=== PATIENT | female | born 1945 | race Caucasian/White ===

== ENCOUNTER 2023-11-27 19:06 | Emergency (ER) | payer MEDICARE, OTHER, SELFPAY ==
[2023-11-27 19:08] VITALS: BP 190/89
--- NOTE | 2023-11-27 19:56 | ED.MUSCINJ ---
HPI-Injury
General
Chief Complaint: Musculo-Skeletal Complaint
Source: patient
Exam Limitations: none
Time Seen by Provider: 11/27/23 19:41
History of Present Illness-Injury
Is this injury a work related problem?: No
Is pt an associate of [facility]?: No
Initial Injury comments:
This is a 78 year old female that comes in with c/o fall. States that she was going from her kitchen into her dinning room and she tripped on the rug. States that she fell down on her right shoulder. Denies hitting her head or any LOC. Denies any
fever, chills, chest pain, SOB, abd pain, nausea, vomiting, diarrhea, headache, dizziness.
Past History
Past History
ED Past Medical History: Other (Diverticulosis and diverticulitis in the past, Colitis, ); Negative CAD, Cancer or CHF
ED Past Surgical History: Gynecological (Ovarian cyst surgery), Tonsilectomy and Other (Thyroid cyst removal, hernia, facelift); Negative Cardiac
Social History
Tobacco: Former smoker
Alcohol: Occasional
Drug: None
Personal:
Living: alone
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
Family History
Family History: Other
Review of Systems
Review of Systems
All Other Systems: ROS reviewed and negative except as documented in HPI and ROS
Constitutional: Reports no symptoms; Denies fever or chills
EENT: Reports no symptoms
Respiratory: Reports no symptoms; Denies cough or trouble breathing
Cardiac: Reports no symptoms; Denies chest pain
ABD/GI: Reports no symptoms; Denies abdominal pain, nausea, vomiting or diarrhea
: Reports no symptoms; Denies dysuria or urgency
Musculoskeletal: Reports joint pain (Right shoulder pain)
Skin: Reports no symptoms
Neurological: Reports no symptoms; Denies dizzy or headache
Psychiatric: Reports no symptoms
Musculoskeletal Injury Exam
Musculoskeletal Injury Exam
Right Shoulder:
Pain with Movement?: Mild
Tender to palpation?: Mild
Soft tissue swelling?: None
External deformity and angulation?: None
Joint effusion?: None
Contusion?: None
Hematoma-local bleeding into tissue?: None
Strain- Sprain- Tear (Connective tissue injury)?: None
Crepitus with movement?: No
Joint instability?: No
Malalignment/deformity?: No
Range of motion: Limited (Due to pain)
Distal skin color and temperature: normal-warm & good color
Capillary Refill: normal
Normal distal neurovascular exam?: Yes
Phy Exam
General Physical Exam
General Presentation: well appearing and no apparent distress
General age: appears stated age
General Skin: warm and dry
General Habitus: elderly
General Mental: alert
General Hydration: appears well hydrated
ENT Exam
ENT Exam: TM's normal, pharynx normal and neck supple
Eye Exam
Eye Exam: EOMI
Cardiovascular Exam
Cardiovascular Exam: regular rate/rhythm and normal peripheral pulses
Musculoskeletal Exam
Musculoskeletal Exam: other (Right shoulder tenderness over the humeral head with palpation. Discomfort with slight abduction. No posterior tenderness or anterior tenderness with palpation. )
Skin Exam
Skin Exam: normal color, warm/dry, no rash and no petechia
Psychiatric Exam
Psychiatric Exam: normal mood/affect
Injury Course
Orders/Labs/Results
Orders:
Orders
11/27/23 19:15
Humerus, Right 2 Views [CR Humerus - Right Min 2 View*] Urgent
Comment:
Reason For Exam: FALL
MDM/Problems Addressed
Differential Diagnosis Includes:
humeral fracture. shoulder contusion
MDM/Problems Addressed:
This is a 78 year old female that comes in with c/o fall onto the right shoulder.
Will get X-ray
expalined to patient that there is a fracture of the humeral head. Will place patient in a sling and have her use Tylenol 1000mg every 6 hours and Ibuprofen 600mg every 6 hours with food for pain. Patient to follow up with the Orhtopedic specialist.
Remove the sling to sleep and elevate on a pillow. Patient to return with any concerns.
Chronic conditions affecting care:
NA
Acute Exacerbation and/or Progression of Chronic Illness:
NA
*Radiology
Radiology exam reviewed: radiology read reviewed (Comminuted likely minimally displaced fracture of the greater tuberosity of the right Humerus. NO overt dislocation. Soft tissues are grossly unremarkable. )
*Pulse Oximetry
Patient hypoxic: no
*EKG
Interpreted by ED Provider?: NA
Rate: EKG- N/A
*Telegraphic Service Dispatcher Interpretation
Rate: Telegraphic Service Dispatcher- N/A
*Critical Care Note
Total Time (30-74mins, 75-104mins- exclusive of procedures): Not Applicable
ED Attending Note
-
Portions of this chart may have been created with voice recognition software.� Occasional wrong word or��sound alike� substitutions may have occurred due to the inherent limitations of voice recognition software.
Discharge Plan
Departure
Patient Disposition: Home (Routine Discharge)
Date of Disposition: 11/27/23
Time of Disposition: 20:05
Patient with high blood pressure during this ER visit?: Yes
Condition: Good
Covid-19: Not Applicable
Discharge Problem:
Fracture of right shoulder
Instructions: Upper Arm Fracture, How to Use a Shoulder Sling, BLOOD PRESSURE, RICE Therapy
Prescriptions:
No Action
ibuprofen 200 MG tablet
200 mg PO DAILY
L.acidoph, paracasei,B. lactis 1 EACH capsule
1 ea PO HS
amoxicillin-pot clavulanate 1 TABLET tablet
1 tab PO Q12
ondansetron 4 MG tablet,disintegrating
4 mg PO TIDPRN PRN (Reason: nausea/vomiting) Qty: 14 0RF
Referrals:
Daren Villagran MD [Active] - Follow up in 2-3 days
Activity Restrictions/Additional Instructions:
As discussed, you have a humeral head fracture. Please use the sling when you are up moving around. Please remove the sling when you are going to bed and rest your arm on a pillow. You may use Tylenol 1000mg every 6 hours for pain and alternate with
Ibuprofen 600mg every 6 hours with food. Ice to the shoulder at least 20 min on out of every hour. Follow up with the business taxes specialist for further evaluation. IF YOU HAVE INCREASED OR CHANGING PAIN, OR YOU HAVE ANY OTHER CONCERNS PLEASE RETURN
TO THE EMERGENCY ROOM.
Interventions
Interventions:
*Risk Screen - Suicide Last Done: 11/27/23 19:08
*Neglect/Abuse Screening Last Done: 11/27/23 19:08
Discharge Date and Time
Print Language: URUGUAYAN
[2023-11-27] MEDS: MOTRIN 600 MG PO (20:16)
== END 2023-11-27 20:48 | disposition home or self-care (01) ==
LOC: EMR 19:06
PROVIDERS: EMERGENCY PHYSICIAN Emergency Medicine; FAMILY PHYSICIAN Internal Medicine
DX: S42.251A Displaced fracture of greater tuberosity of right humerus, initial encounter for closed fracture (principal); W01.0XXA Fall on same level from slipping, tripping and stumbling without subsequent striking against object, initial encounter; Y93.01 Activity, walking, marching and hiking; Y92.008 Other place in unspecified non-institutional (private) residence as the place of occurrence of the external cause; R03.0 Elevated blood-pressure reading, without diagnosis of hypertension; K57.90 Diverticulosis of intestine, part unspecified, without perforation or abscess without bleeding; K52.9 Noninfective gastroenteritis and colitis, unspecified; Z87.891 Personal history of nicotine dependence; Z88.1 Allergy status to other antibiotic agents
CPT/HCPCS: 99283; 73060

== ENCOUNTER → 2024-12-24 13:44 | Outpatient (REF) | payer MEDICARE, OTHER, SELFPAY | LOC: HWRAD 13:44 | PROVIDERS: ATTENDING PHYSICIAN Orthopaedic Surgery Hand Surgery; FAMILY PHYSICIAN Internal Medicine | DX: S42.202A Unspecified fracture of upper end of left humerus, initial encounter for closed fracture (principal) | CPT/HCPCS: 73200 ==

== ENCOUNTER 2024-12-31 06:07 | Day surgery (SDC) | payer MEDICARE, OTHER, SELFPAY ==
--- NOTE | 2024-12-24 15:09 | CM ---
CM reviewed medical records. Patient stated that she fell recently and that led to her injury. She stated it was a mechanical fall. Patient's friend David will be available to drive patient to and from surgery. Patient does not have a history of [facility]. Patient does not have any DME.
Patient is active with her PCP. Patient will uses [facility] for medication services.
PLAN: Home with friend to support her, outpatient PT when surgically cleared.
[2024-12-29 14:13] VITALS: BMI 18.4
[2024-12-29 14:39] LABS: Hematocrit 34.7 % (37.0-47.0); Hemoglobin 10.9 g/dL (12.0-16.0); Mean Corp Hgb Conc. 31.4 g/dL (33.0-37.0); Mean Corpuscular Volume 92.5 fL (81.0-99.0); Platelet Count 319 10^3/uL (130-400); Red Cell Dist. Width 14.3 % (11.5-14.5)
[2024-12-29 15:15] LABS: ALT (SGPT) 12 U/L (0-35); AST (SGOT) 20 U/L (14-36); Albumin 4.0 g/dl (3.5-5.0); Alkaline Phosphatase 89 U/L (38-126); Blood Urea Nitrogen 12 mg/dl (7-17); Calcium 9.3 mg/dl (8.4-10.2); Carbon Dioxide 31 mmol/L (22-30); Chloride 104 mmol/L (98-107); Estimated Creatinine Clearance 47 ml/min; Glucose 90 mg/dl (70-99); Potassium 4.3 mmol/L (3.5-5.1); Sodium 138 mmol/L (135-145); Total Protein 6.4 g/dl (6.3-8.2); eGFR > 60.00
[2024-12-30 08:45] VITALS: BMI 18.4
[2024-12-30 10:16] LABS: Glycohemoglobin (HgbA1c) 5.5 % (4.0-5.6)
[2024-12-31] VITALS (12 sets, daily range): BP systolic 88–173; BP diastolic 54–71; BMI 18.4
[2024-12-31] MEDS: TYLENOL 1000 MG PO (09:16)
[2024-12-31] MEDS: NORMOSOL-R/PLASMALYTE-A 1000 IV (09:19)
[2024-12-31] MEDS: CELEBREX 200 MG PO (09:49)
[2024-12-31] MEDS: ANCEF 5 IV (15:01)
== END 2024-12-31 15:11 | disposition home or self-care (01) ==
LOC: SDS 06:07
PROVIDERS: ATTENDING PHYSICIAN Orthopaedic Surgery Hand Surgery; FAMILY PHYSICIAN Internal Medicine
DX: S42.202A Unspecified fracture of upper end of left humerus, initial encounter for closed fracture (principal); X58.XXXA Exposure to other specified factors, initial encounter; Z96.612 Presence of left artificial shoulder joint
CPT/HCPCS: 23472; 36415; 73020; 80053; 83036; 85027; 86850; 86900; 86901; 87070; 93005; C1713; C1776